=== PATIENT | male | born 1995 | race Caucasian/White ===

== ENCOUNTER 2021-08-29 06:21 | Emergency (ER) | payer SELFPAY ==
[2021-08-29 06:26] VITALS: BP 114/90
[2021-08-29] MEDS ORDERED: IPRATROPIUM 0.02% NEBU 2.5 ML IH ONE ×3 (06:28→06:36)
[2021-08-29] MEDS ORDERED: ALBUTEROL 2.5 MG/3 ML NEBU IH ONE ×4 (06:28→06:37)
[2021-08-29] MEDS ORDERED: dexAMETHasone 4 MG/ML VIAL ONE (06:29)
[2021-08-29] MEDS ORDERED: dexAMETHasone 20 MG/5 ML VIAL IM ONE (06:36)
--- NOTE | 2021-08-29 06:54 | Emergency Department Report ---
ED Asthma HPI - General Chief Complaint: Adult Asthma Stated Complaint: ASTHMA Time Seen by Provider: 08/29/21 06:29 Source: patient Mode of arrival: Ambulatory Limitations: No Limitations - History of Present Illness Initial Comments: This is a 25-year-old male nontoxic, well nourished in appearance, no acute signs of distress presents to the ED with c/o of acute on chronic asthma exacerbation. Patient stated she is out of her albuterol inhaler several days. Patient denies any cough. Patient denies any sick contact. Patient denies any recent travels, long car, recent hospital stays. Patient denies any calf pain or calf tenderness. Patient denies any chest pain, short of breath, fever, chills, nausea, vomiting, hemoptysis, numbness, tingling, headache or stiff neck. Past medical history includes asthma. MD Complaint: "asthma attack", wheezing -: days(s) Asthma History: childhood onset Severity: mild Context: none known Associated Symptoms: none. denies: productive cough, dry cough, fever, chest pain, hemoptysis, leg edema, syncope - Related Data Previous Rx's Medication Instructions Recorded Last Taken Type Albuterol Mdi (or & Nicu Only) 2 puff IH QID PRN #8.5 gram 08/29/21 Unknown Rx [ProAir HFA Inhaler] Prednisone [predniSONE 10 mg 10 mg PO .TAPER #1 08/29/21 Unknown Rx (6-Day Pack, 21 Tabs)] Allergies Allergy/AdvReac Type Severity Reaction Status Date / Time SEAFOOD AdvReac Severe Anaphylaxis Uncoded 08/29/21 06:36 ED Review of Systems ROS: Stated complaint: ASTHMA Other details as noted in HPI Comment: All other systems reviewed and negative Constitutional: denies: chills, fever Eyes: denies: eye pain, eye discharge, vision change ENT: denies: ear pain, throat pain Respiratory: shortness of breath, wheezing. denies: cough, orthopnea, SOB with exertion, SOB at rest, stridor Cardiovascular: denies: chest pain, palpitations Endocrine: no symptoms reported Gastrointestinal: denies: abdominal pain, nausea, diarrhea Genitourinary: denies: urgency, dysuria Musculoskeletal: denies: back pain, joint swelling, arthralgia Skin: denies: rash, lesions Neurological: denies: headache, weakness, paresthesias Psychiatric: denies: anxiety, depression Hematological/Lymphatic: denies: easy bleeding, easy bruising ED Past Medical Hx - Past Medical History Additional medical history: ASTHMA - Surgical History Past Surgical History?: No - Medications Home Medications: Home Medications Medication Instructions Recorded Confirmed Last Taken Type Albuterol Mdi (or & Nicu Only) 2 puff IH QID PRN #8.5 gram 08/29/21 Unknown Rx [ProAir HFA Inhaler] Prednisone [predniSONE 10 mg 10 mg PO .TAPER #1 08/29/21 Unknown Rx (6-Day Pack, 21 Tabs)] ED Physical Exam - General Limitations: No Limitations General appearance: alert, in no apparent distress - Head Head exam: Present: atraumatic, normocephalic - Eye Eye exam: Present: normal appearance - Neck Neck exam: Present: normal inspection, full ROM. Absent: lymphadenopathy - Respiratory Respiratory exam: Present: wheezes (Bilateral expiratory bilateral wheezing). Absent: respiratory distress, rales, rhonchi, stridor, chest wall tenderness, accessory muscle use, decreased breath sounds, prolonged expiratory - Cardiovascular Cardiovascular Exam: Present: normal rhythm, normal heart sounds. Absent: irregular rhythm, systolic murmur, diastolic murmur, rubs, gallop - GI/Abdominal GI/Abdominal exam: Present: soft. Absent: distended, tenderness - Extremities Exam Extremities exam: Present: full ROM - Back Exam Back exam: Present: full ROM - Neurological Exam Neurological exam: Present: alert, oriented X3, normal gait - Psychiatric Psychiatric exam: Present: normal affect, normal mood - Skin Skin exam: Present: warm, dry, intact, normal color. Absent: rash ED Course Vital Signs 08/29/21 08/29/21 08/29/21 06:21 08:47 10:04 Temperature 97.9 F 98.6 F Pulse Rate 105 H 86 105 H Respiratory 18 16 18 Rate Blood Pressure 114/90 [Right] O2 Sat by Pulse 98 100 92 Oximetry - Reevaluation(s) Reevaluation #1: 08/29/21 06:54 Patient is speaking in full sentences with no signs of distress noted. ED Medical Decision Making - Radiology Data [facility] [address] [place] [address] XRay Report Signed Patient: RAYMOND RODRIGUES MR#: [id number] [birth year] : 1995 Acct:[id number] Age/Sex: 25 / M ADM Date: 08/29/21 Loc: ED Attending Dr: Ordering Physician: PRABHA LOCKE NP Date of Service: 08/29/21 Procedure(s): XR chest routine 2V Accession Number(s): [id number] cc: PRABHA LOCKE NP Fluoro Time In Minutes: CHEST 2 VIEWS INDICATION / CLINICAL INFORMATION: SOB/wheezing. COMPARISON: None available. FINDINGS: SUPPORT DEVICES: None. HEART / MEDIASTINUM: The heart size and pulmonary vasculature are normal. LUNGS / PLEURA: No significant pulmonary or pleural abnormality. No pneumothorax. ADDITIONAL FINDINGS: No significant additional findings. IMPRESSION: No acute findings. Signer Name: Vern Jasso MD Signed: 08/29/2021 9:30 AM Workstation Name: [id number] Transcribed By: RT Dictated By: Vern Jasso MD Electronically Authenticated By: Vern Jasso MD Signed Date/Time: 08/29/21929 DD/ 8 TD/TT: - Medical Decision Making This is a 25-year-old male that presents with asthma exacerbation. Patient is stable and was examined by me. Chest x-ray has been obtained and dictated by the radiologist within normal limits. Patient is notified of the x-ray report with no questions noted by the patient. Patient did receive breathing treatment and steroids in the ED which patient the symptoms has resolved and subsided. Posttreatment and there is no wheezing upon auscultation. Patient is discharged with albuterol and prednisone. Patient was referred to Follow-up with a primary care doctor in 3-5 days or if symptoms worsen and continue return to emergency room as soon as possible. At time of discharge, the patient does not seem toxic or ill in appearance. No acute signs of distress noted. Patient agrees to discharge treatment plan of care. No further questions noted by the patient. This chart is dictated with using [employer] Dictation Program The patient was evaluated in the emergency department for symptoms described in the history of present illness. He/she was evaluated in the context of the global COVID-19 pandemic, which necessitated consideration that the patient might be at risk for infection with the virus that causes COVID-19. Institutional protocols and algorithms that pertain to the evaluation of patients at risk for COVID-19 are in a state of rapid change based on information released by regulatory bodies including the CDC and federal and state organizations. These policies and algorithms were followed during the patient's care in the emergency department. Please note that these policies, procedures and recommendations changed on a rapid basis. Critical care attestation.: If time is entered above; I have spent that time in minutes in the direct care of this critically ill patient, excluding procedure time. ED Disposition Clinical Impression: Asthma exacerbation Qualifiers: Asthma severity: mild Asthma persistence: intermittent Qualified Code(s): J45.21 - Mild intermittent asthma with (acute) exacerbation Disposition: HOME / SELF CARE / HOMELESS Is pt being admited?: No Does the pt Need Aspirin: No Condition: Stable Instructions: Asthma, Adult, Asthma Attack Additional Instructions: Follow-up with a primary care doctor in 3-5 days or if symptoms worsen and continue return to emergency room as soon as possible. Prescriptions: Prednisone [predniSONE 10 mg (6-Day Pack, 21 Tabs)] 10 mg PO .TAPER #1 Albuterol Mdi (or & Nicu Only) [ProAir HFA Inhaler] 2 puff IH QID PRN #8.5 gram PRN Reason: Shortness Of Breath Referrals: PRIMARY CARE, [Primary Care Provider] - 3-5 Days ACOSTA GARZA MD [Staff Physician] - 3-5 Days Time of Disposition: 09:51
--- NOTE | 2021-08-29 09:35 | XRay Report ---
CHEST 2 VIEWS INDICATION / CLINICAL INFORMATION: SOB/wheezing. COMPARISON: None available. FINDINGS: SUPPORT DEVICES: None. HEART / MEDIASTINUM: The heart size and pulmonary vasculature are normal. LUNGS / PLEURA: No significant pulmonary or pleural abnormality. No pneumothorax. ADDITIONAL FINDINGS: No significant additional findings. IMPRESSION: No acute findings. Signer Name: Vern Jasso MD Signed: 08/29/2021 9:30 AM Workstation Name: [id number]
== END 2021-08-29 10:06 | disposition home or self-care (01) ==
LOC: ED 06:21
DX: J45.901 Unspecified asthma with (acute) exacerbation (principal); Z91.013 Allergy to seafood; Z79.899 Other long term (current) drug therapy
CPT/HCPCS: 71046; 94640; 96372; 99283; J1100

== ENCOUNTER 2021-09-06 14:53 | Emergency (ER) | payer MEDICAID ==
[2021-09-06] MEDS ORDERED: IPRATROPIUM 0.02% NEBU 2.5 ML IH ONE (16:45)
[2021-09-06] MEDS ORDERED: ALBUTEROL 2.5 MG/3 ML NEBU IH ONE ×2 (16:45→17:51)
[2021-09-06] MEDS ORDERED: methylPREDNISolone Sod Succinate 125 MG/2 ML INJ IM ONE (16:52)
--- NOTE | 2021-09-06 16:59 | Emergency Department Report ---
ED Asthma HPI - General Chief Complaint: Dyspnea/Respdistress Stated Complaint: asthma attack PUI?: No Time Seen by Provider: 09/06/21 16:45 Source: patient, EMS Mode of arrival: Stretcher Limitations: No Limitations - History of Present Illness Initial Comments: 25-year-old male presents to the emergency room reporting having a asthma attack. Patient reports he has a history of asthma and is ran out of his medication. Patient stated he is up-to-date on all his vaccines for COVID. He denies any fever chills no nausea no vomiting no chest pain. Patient reports that he hates having asthma. MD Complaint: "asthma attack", wheezing Onset/Timin -: days(s) Asthma History: history of frequent attac, history of prior ED visit, previously intubated Severity: severe Context: ran out of meds - Related Data Current Asthma Therapy: inhaled bronchodilator, inhaled steroid Previous Rx's Medication Instructions Recorded Last Taken Type Albuterol Mdi (or & Nicu Only) 2 puff IH QID PRN #8.5 gram 09/06/21 Unknown Rx [ProAir HFA Inhaler] Prednisone [predniSONE 10 mg 10 mg PO .TAPER #1 09/06/21 Unknown Rx (6-Day Pack, 21 Tabs)] Allergies Allergy/AdvReac Type Severity Reaction Status Date / Time SEAFOOD AdvReac Severe Anaphylaxis Uncoded 09/06/21 14:57 ED Review of Systems ROS: Stated complaint: asthma attack Other details as noted in HPI Comment: All other systems reviewed and negative ED Past Medical Hx - Past Medical History Previous Medical History?: Yes Hx Asthma: Yes Additional medical history: ASTHMA - Medications Home Medications: Home Medications Medication Instructions Recorded Confirmed Last Taken Type Albuterol Mdi (or & Nicu Only) 2 puff IH QID PRN #8.5 gram 09/06/21 Unknown Rx [ProAir HFA Inhaler] Prednisone [predniSONE 10 mg 10 mg PO .TAPER #1 09/06/21 Unknown Rx (6-Day Pack, 21 Tabs)] ED Physical Exam - General Limitations: No Limitations General appearance: alert, in no apparent distress - Head Head exam: Present: atraumatic, normocephalic - Eye Eye exam: Present: normal appearance - ENT ENT exam: Present: mucous membranes moist - Neck Neck exam: Present: normal inspection - Respiratory Respiratory exam: Present: respiratory distress, wheezes, other (Audible wheezing) - Cardiovascular Cardiovascular Exam: Present: normal rhythm, tachycardia. Absent: systolic murmur, diastolic murmur, rubs, gallop - GI/Abdominal GI/Abdominal exam: Present: soft, normal bowel sounds - Rectal Rectal exam: Present: deferred - Extremities Exam Extremities exam: Present: normal inspection - Back Exam Back exam: Present: normal inspection - Neurological Exam Neurological exam: Present: alert, oriented X3, normal gait - Psychiatric Psychiatric exam: Present: normal affect, normal mood - Skin Skin exam: Present: warm, dry, intact, normal color. Absent: rash ED Course Vital Signs 09/06/21 14:54 Temperature 97.5 F L Pulse Rate 107 H Respiratory 18 Rate Blood Pressure 124/73 [Left] O2 Sat by Pulse 96 Oximetry - Reevaluation(s) Reevaluation #1: 09/06/21 17:50 Patient wheezing has improved but just a little rhonchus in the left upper lung. ED Medical Decision Making - Medical Decision Making 25-year-old male presents to the emergency room reporting having a asthma attack. Patient reports he has a history of asthma and is ran out of his medication. Patient stated he is up-to-date on all his vaccines for COVID. He denies any fever chills no nausea no vomiting no chest pain. Patient reports that he hates having asthma. Stat orders for albuterol, Atrovent, Solu-Medrol. Critical care attestation.: If time is entered above; I have spent that time in minutes in the direct care of this critically ill patient, excluding procedure time. ED Disposition Clinical Impression: Asthma exacerbation Disposition: HOME / SELF CARE / HOMELESS Is pt being admited?: No Does the pt Need Aspirin: No Condition: Stable Instructions: Asthma, Adult, [id number] Additional Instructions: Please complete prednisone as prescribed. Use your inhaler as needed. Follow- up with the primary care provider. Prescriptions: Prednisone [predniSONE 10 mg (6-Day Pack, 21 Tabs)] 10 mg PO .TAPER #1 Albuterol Mdi (or & Nicu Only) [ProAir HFA Inhaler] 2 puff IH QID PRN #8.5 gram PRN Reason: Shortness Of Breath Referrals: ACOSTA GARZA MD [Staff Physician] - 3-5 Days Forms: Work/School Release Form(ED) Time of Disposition: 18:27
[2021-09-06 18:50] VITALS: BP 124/78
== END 2021-09-06 18:50 | disposition home or self-care (01) ==
LOC: ED 14:53
DX: J45.901 Unspecified asthma with (acute) exacerbation (principal); Z91.013 Allergy to seafood; Z79.899 Other long term (current) drug therapy
CPT/HCPCS: 94640; 96372; 99283; J2930

== ENCOUNTER 2021-12-31 22:20 | Emergency (ER) | payer MEDICAID ==
[2022-01-01] MEDS ORDERED: IPRATROPIUM/ALBUTEROL SULFATE 3 ML AMPUL.NEB IH ONE (00:31)
[2022-01-01] MEDS ORDERED: methylPREDNISolone Sod Succinate 125 MG/2 ML INJ IM ONE (00:31)
[2022-01-01] MEDS ORDERED: IPRATROPIUM 0.02% NEBU 2.5 ML IH ONE ×2 (00:37→01:33)
[2022-01-01] MEDS ORDERED: ALBUTEROL 2.5 MG/3 ML NEBU IH ONE ×2 (00:37→01:33)
--- NOTE | 2022-01-01 01:07 | XRay Report ---
XR chest 1V ap INDICATION / CLINICAL INFORMATION: dyspnea. COMPARISON: 11/20/2021 FINDINGS: SUPPORT DEVICES: None. HEART /PULMONARY VASCULATURE: No significant abnormality. LUNGS / PLEURA: No significant pulmonary or pleural abnormality. No pneumothorax. ADDITIONAL FINDINGS: No significant additional findings. IMPRESSION: 1. No acute findings. Signer Name: Jimi Arreola MD Signed: 01/01/2022 1:02 AM Workstation Name: [id number]
--- NOTE | 2022-01-01 03:01 | Emergency Department Report ---
ED Shortness of Breath HPI - General Chief Complaint: Adult Asthma Stated Complaint: ASTHMA/MARIANNA Source: EMS Mode of arrival: Ambulatory Limitations: No Limitations - History of Present Illness Initial Comments: Patient is a 26-year-old -[place]altese male with a history of asthma on heavy tobacco abuse who presents to the ED with complaint of acute onset persistent shortness of breath and chest tightness for the last 2 hours. Patient states that he was walking on the street smoking cigarette when he started having shortness of breath and choking. Patient states that he has not used any albuterol inhaler or nebulizer because he does not have any. Patient denies dizziness, syncope, chest pain, nausea and vomiting, fever, chills, back pain, neck pain, nasal and sinus congestion or sore throat. MD Complaint: shortness of breath, "asthma attack" -: Sudden, hour(s) (2) Severity: moderate Pain Scale: 4 Quality: other (Chest tightness) Consistency: constant Improves With: nothing Worsens With: movement, coughing Known History Of: asthma Context: recent URI, allergen exposure, smoke/fume exposure (Cigarette smoking) Associated Symptoms: cough Treatments Prior to Arrival: none - Related Data Home Oxygen Therapy: No Previous Rx's Medication Instructions Recorded Last Taken Type Albuterol Mdi (or & Nicu Only) 2 puff IH QID PRN #8.5 gram 09/06/21 Unknown Rx [ProAir HFA Inhaler] Prednisone [predniSONE 10 mg 10 mg PO .TAPER #1 09/06/21 Unknown Rx (6-Day Pack, 21 Tabs)] Albuterol Sulfate [Proventil Hfa] 1 - 2 puff IH Q6H PRN #1 inh 01/01/22 Unknown Rx Benzonatate [Tessalon Perles] 100 mg PO Q8HR #30 cap 01/01/22 Unknown Rx predniSONE [Deltasone] 40 mg PO QDAY #12 tab 01/01/22 Unknown Rx Allergies Allergy/AdvReac Type Severity Reaction Status Date / Time SEAFOOD AdvReac Severe Anaphylaxis Uncoded 09/06/21 14:57 ED Review of Systems ROS: Stated complaint: ASTHMA/MARIANNA Other details as noted in HPI Constitutional: denies: chills, fever Eyes: denies: eye pain, eye discharge, vision change ENT: congestion. denies: ear pain, throat pain Respiratory: cough, shortness of breath, wheezing Cardiovascular: denies: chest pain, palpitations Endocrine: no symptoms reported Gastrointestinal: denies: abdominal pain, nausea, diarrhea Genitourinary: denies: urgency, dysuria Musculoskeletal: denies: back pain, joint swelling, arthralgia Skin: denies: rash, lesions Neurological: denies: headache, weakness, paresthesias Psychiatric: denies: anxiety, depression Hematological/Lymphatic: denies: easy bleeding, easy bruising ED Past Medical Hx - Past Medical History Previous Medical History?: Yes Hx Asthma: Yes Additional medical history: ASTHMA - Surgical History Past Surgical History?: No - Social History Smoking Status: Never Smoker - Medications Home Medications: Home Medications Medication Instructions Recorded Confirmed Last Taken Type Albuterol Mdi (or & Nicu Only) 2 puff IH QID PRN #8.5 gram 09/06/21 Unknown Rx [ProAir HFA Inhaler] Prednisone [predniSONE 10 mg 10 mg PO .TAPER #1 09/06/21 Unknown Rx (6-Day Pack, 21 Tabs)] Albuterol Sulfate [Proventil Hfa] 1 - 2 puff IH Q6H PRN #1 inh 01/01/22 Unknown Rx Benzonatate [Tessalon Perles] 100 mg PO Q8HR #30 cap 01/01/22 Unknown Rx predniSONE [Deltasone] 40 mg PO QDAY #12 tab 01/01/22 Unknown Rx ED Physical Exam - General Limitations: No Limitations General appearance: alert, in no apparent distress - Head Head exam: Present: atraumatic, normocephalic, normal inspection - Eye Eye exam: Present: normal appearance, PERRL, EOMI Pupils: Present: normal accommodation - ENT ENT exam: Present: normal exam, normal orophraynx, mucous membranes moist, TM's normal bilaterally, normal external ear exam - Neck Neck exam: Present: normal inspection, full ROM - Respiratory Respiratory exam: Present: wheezes (Diffuse coarse wheezes throughout). Absent: respiratory distress, rales, rhonchi, chest wall tenderness, accessory muscle use, decreased breath sounds, prolonged expiratory - Cardiovascular Cardiovascular Exam: Present: normal rhythm, tachycardia, normal heart sounds. Absent: systolic murmur, diastolic murmur, rubs, gallop - GI/Abdominal GI/Abdominal exam: Present: soft, normal bowel sounds. Absent: tenderness, guarding, rebound, hyperactive bowel sounds, hypoactive bowel sounds, organomegaly - Extremities Exam Extremities exam: Present: normal inspection, full ROM, normal capillary refill - Back Exam Back exam: Present: normal inspection, full ROM. Absent: tenderness, CVA tenderness (R), CVA tenderness (L), muscle spasm, paraspinal tenderness, vertebral tenderness - Neurological Exam Neurological exam: Present: alert, oriented X3, CN II-XII intact, normal gait, reflexes normal - Psychiatric Psychiatric exam: Present: normal affect, normal mood, anxious - Skin Skin exam: Present: warm, dry, intact, normal color. Absent: rash ED Course Vital Signs 12/31/21 01/01/22 01/01/22 22:40 00:43 00:46 Temperature 98.4 F Pulse Rate 114 H Pulse Rate [ 107 H 110 H Posterior Bilateral Throughout] Respiratory 18 Rate Respiratory 24 20 Rate [Posterior Bilateral Throughout] Blood Pressure 150/82 O2 Sat by Pulse 97 Oximetry 01/01/22 01:47 Temperature Pulse Rate Pulse Rate [ 100 H Posterior Bilateral Throughout] Respiratory Rate Respiratory 20 Rate [Posterior Bilateral Throughout] Blood Pressure O2 Sat by Pulse Oximetry ED Medical Decision Making - Radiology Data Radiology results: report reviewed, image reviewed [facility] [address] [place] [address] XRay Report Signed Patient: RAYMOND RODRIGUES MR#: [id number] [birth year] : 1995 Acct:[id number] Age/Sex: 26 / M ADM Date: 12/31/21 Loc: ED Attending Dr: Ordering Physician: SANDEEP BASS Date of Service: 01/01/22 Procedure(s): XR chest 1V ap Accession Number(s): [id number] cc: SANDEEP BASS Fluoro Time In Minutes: XR chest 1V ap INDICATION / CLINICAL INFORMATION: dyspnea. COMPARISON: 11/20/2021 FINDINGS: SUPPORT DEVICES: None. HEART /PULMONARY VASCULATURE: No significant abnormality. LUNGS / PLEURA: No significant pulmonary or pleural abnormality. No pneumothorax. ADDITIONAL FINDINGS: No significant additional findings. IMPRESSION: 1. No acute findings. Signer Name: Ish Sol MD Signed: 01/01/2022 1:02 AM Workstation Name: [id number] Transcribed By: MARIANGEL Dictated By: ISH SOL MD Electronically Authenticated By: ISH SOL MD Signed Date/Time: 01/01/22101 DD/ 1 TD/TT: - Medical Decision Making This is a 26-year-old -Maltese male with a history of asthma on heavy tobacco abuse who presents to the ED with complaint of acute onset persistent shortness of breath and chest tightness for the last 2 hours. Patient states t hat he was walking on the street smoking cigarette when he started having shortness of breath and choking. Patient states that he has not used any albuterol inhaler or nebulizer because he does not have any. In the ED, patient is alert and oriented x3 and is not in any distress. Patient received nebulizer treatments in the ED and also received Solu-Medrol 125 mg intramuscular injection. Chest x-ray showed no acute cardiopulmonary abnormalities or pneumonitis. On reevaluation, patient felt better, wheezing resolved and patient's oxygen saturation ranged from 95 to 96% on room air. Patient was therefore discharged home on medications and advised to follow-up with his primary care physician in 5 to 7 days for reevaluation or return to the ED immediately if symptoms get worse. - Differential Diagnosis asthma; bronchitis; URI; pneumonia Critical care attestation.: If time is entered above; I have spent that time in minutes in the direct care of this critically ill patient, excluding procedure time. ED Disposition Clinical Impression: Acute bronchitis with asthma with acute exacerbation, Shortness of breath Disposition: 01 HOME / SELF CARE / HOMELESS Is pt being admited?: No Does the pt Need Aspirin: No Condition: Stable Instructions: Shortness of Breath, Adult, [id number]-Wdvo, Cough, Adult, Ilog-vd-Myhd, Acute Bronchitis, Adult, Suoj-up-Sbqx, Asthma, Adult, Nujl-nd-Pric Additional Instructions: Chest x-ray showed no acute cardiopulmonary abnormalities or pneumonitis. Therefore take medications as advised, follow-up with your primary care physician in 5 to 7 days for reevaluation. Return to the ED immediately if symptoms get worse. Prescriptions: predniSONE [Deltasone] 40 mg PO QDAY #12 tab Albuterol Sulfate [Proventil Hfa] 1 - 2 puff IH Q6H PRN #1 inh PRN Reason: Shortness Of Breath Benzonatate [Tessalon Perles] 100 mg PO Q8HR #30 cap Referrals: [facility] [Provider Group] - 7-10 days Time of Disposition: 03:03 Print Language: [place] CITIZ[place]
[2022-01-01 04:39] VITALS: BP 120/58
== END 2022-01-01 04:39 | disposition home or self-care (01) ==
LOC: ED 22:20
DX: J45.901 Unspecified asthma with (acute) exacerbation (principal); R06.02 Shortness of breath; Z91.013 Allergy to seafood
CPT/HCPCS: 71045; 94640; 94644; 96372; 99284; J2930